=== PATIENT | female | born 1935 | race Caucasian/White ===

== ENCOUNTER 2020-12-15 01:32 | Day surgery (SDC) | payer MEDICARE, SELFPAY ==
[2020-12-11 13:03] VITALS: BMI 35.9
--- NOTE | 2020-12-14 16:23 | WPDANESEPPF ---
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 Patient Data Age: 85 Gender: F Height: 1.57 m Weight: 89.09 kg Allergies Allergy/AdvReac Type Severity Reaction Status Date / Time hyoscyamine Allergy Unknown Verified 12/11/20 13:00 minocycline Allergy Unknown Verified 12/11/20 13:00 promethazine Allergy Unknown Verified 12/11/20 13:00 Sulfa (Sulfonamide Allergy Unknown Verified 12/11/20 13:00 Antibiotics) Home Medications Medication Instructions Recorded Confirmed Type acetaminophen 500 mg PO QID PRN 12/11/20 12/11/20 History albuterol sulfate [Ventolin HFA] 1 - 2 inh INHALATION QID PRN 12/11/20 12/11/20 History amlodipine 10 mg DAILY 12/11/20 12/11/20 History aspirin [Aspirin Low Dose] 81 mg PO DAILY 12/11/20 12/11/20 History atorvastatin 40 mg DAILY 12/11/20 12/11/20 History carbidopa-levodopa 1 tablet DAILY 12/11/20 12/11/20 History cetirizine 10 mg PO DAILY 12/11/20 12/11/20 History cholecalciferol (vitamin D3) 50 mcg PO DAILY 12/11/20 12/11/20 History [Vitamin D3] cyanocobalamin (vitamin B-12) 1,000 mcg MONTHLY 12/11/20 12/11/20 History dexamethasone [Maxidex] 1 drp DAILY 12/11/20 12/11/20 History diclofenac sodium 75 mg PO BID 12/11/20 12/11/20 History esomeprazole magnesium 40 mg DAILY 12/11/20 12/11/20 History ferrous sulfate 325 mg PO DAILY 12/11/20 12/11/20 History fluoride (sodium) [PreviDent] 1 applic DENTAL USEASDIRECTD 12/11/20 12/11/20 History fluticasone furoate-vilanterol 1 inh INHALATION DAILY 12/11/20 12/11/20 History [Breo Ellipta] fluticasone propionate 50 mcg INTRANASAL DAILY 12/11/20 12/11/20 History gabapentin 300 mg TID 12/11/20 12/11/20 History hydralazine 25 mg PRN PRN 12/11/20 12/11/20 History hydrocodone-acetaminophen 1 tablet TID PRN 12/11/20 12/11/20 History lorazepam 0.25 mg HS 12/11/20 12/11/20 History magnesium oxide 400 mg PO DAILY 12/11/20 12/11/20 History metoprolol succinate 25 mg PO HS 12/11/20 12/11/20 History misoprostol 200 mcg SUBLINGUAL BID PRN 12/11/20 12/11/20 History neomycin-polymyxin B-dexameth See Rx Instructions .ROUTE .COMPLEX 12/11/20 12/11/20 History niacin 500 mg PO DAILY 12/11/20 12/11/20 History oxybutynin chloride 10 mg PO DAILY 12/11/20 12/11/20 History peg 400-propylene glycol [Systane 1 drp EACH EYE TID 12/11/20 12/11/20 History Ultra] phenazopyridine 100 mg PO TID PRN 12/11/20 12/11/20 History polyethylene glycol 3350 17 g PO USEASDIRECTD 12/11/20 12/11/20 History potassium chloride 10 meq DAILY 12/11/20 12/11/20 History sertraline 100 mg DAILY 12/11/20 12/11/20 History sodium chloride 1,000 mg PO DAILY 12/11/20 12/11/20 History valsartan-hydrochlorothiazide 1 tablet DAILY 12/11/20 12/11/20 History vitamin B complex 1 cap PO DAILY 12/11/20 12/11/20 History Patient hx anesthesia problems: none Family hx anesthesia problems: none PMFSH Past Medical History Medical History (Updated 12/14/20 @ 16:25 by Hamlet Murillo MD) Breast CA Chronic GERD COPD (chronic obstructive pulmonary disease) CVA (cerebral vascular accident) HTN (hypertension) Hypercholesterolemia Obesity HORTENCIA on CPAP Osteoarthritis Parkinson disease Peripheral neuropathy TIA (transient ischemic attack) Social History Social History Smoking status: Never smoker Second hand tobacco smoke exposure: No Alcohol use details: STATES ONCE OR TWICE A YEAR Substance use: never Substance use type: does not use Living arrangements: assisted living Additional living arrangements comments: [facility] Spiritual care concerns: No Anes - Eval Final PreProcedure Day of Procedure 12/14/20 16:23 Patient weight: obese Heart: regular rate and rhythm Lungs: clear to auscultation and normal air movement Airway: Mallampati scale cla
--- NOTE | 2020-12-15 11:53 | ECG_ITS ---
Measurements Intervals [place] Rate: 68 P: 40 NV: 208 QRS: -2 QRSD: 78 T: 31 QT: 421 QTc: 449 Interpretive Statements SINUS RHYTHM DELAYED PRECORDIAL R/S TRANSITION BORDERLINE ST ABNORMALITY- HIGH LATERAL LEADS BORDERLINE ECG Electronically Signed On 12-15-2020 12:18:28 LINE ERECTOR APPRENTICE by Behzad Gupta D.O.
[2020-12-15] MEDS: LACTATED RINGERS 1,000 ML 30 ML IV CONT (12:43)
[2020-12-15 13:03] VITALS: BP 128/57; PULSE 69; RESP 20; TEMP 36.2; O2SAT 96; BMI 29.7
--- NOTE | 2020-12-15 13:14 | WPDHPUPDATE1 ---
History and Physical Update Update Date/Time: 12/15/20 13:14 History and Physical has been reviewed, including an updated exam of the patient. There are NO changes in the patient's condition. Risks, benefits, and alternatives have been discussed and questions answered. Patient agrees to proceed with procedure.
--- NOTE | 2020-12-15 13:20 | PM.IMHP ---
H&P: HPI History of Present Illness Date/Time: 12/15/20 13:20 Chief Complaint: ostoemyelitis left 4th toe Narrative: Chad Ahuja is a 85 year old female [facility] Past Medical History Medical History (Updated 12/14/20 @ 16:25 by Hamlet Murillo MD) Breast CA Chronic GERD COPD (chronic obstructive pulmonary disease) CVA (cerebral vascular accident) HTN (hypertension) Hypercholesterolemia Obesity HORTENCIA on CPAP Osteoarthritis Parkinson disease Peripheral neuropathy TIA (transient ischemic attack) Social History Social History Smoking status: Never smoker Second hand tobacco smoke exposure: No Alcohol use details: STATES ONCE OR TWICE A YEAR Substance use: never Substance use type: does not use Living arrangements: assisted living Additional living arrangements comments: [facility] Spiritual care concerns: No Meds Home Medications and Allergies Home Medications Medication Instructions Recorded Confirmed Type acetaminophen 500 mg PO QID PRN 12/11/20 12/11/20 History albuterol sulfate [Ventolin HFA] 1 - 2 inh INHALATION QID PRN 12/11/20 12/11/20 History amlodipine 10 mg DAILY 12/11/20 12/15/20 History aspirin [Aspirin Low Dose] 81 mg PO DAILY 12/11/20 12/15/20 History atorvastatin 40 mg DAILY 12/11/20 12/11/20 History carbidopa-levodopa 1 tablet DAILY 12/11/20 12/15/20 History cetirizine 10 mg PO DAILY 12/11/20 12/11/20 History cholecalciferol (vitamin D3) 50 mcg PO DAILY 12/11/20 12/11/20 History [Vitamin D3] cyanocobalamin (vitamin B-12) 1,000 mcg MONTHLY 12/11/20 12/11/20 History dexamethasone [Maxidex] 1 drp DAILY 12/11/20 12/11/20 History diclofenac sodium 75 mg PO BID 12/11/20 12/11/20 History esomeprazole magnesium 40 mg DAILY 12/11/20 12/11/20 History ferrous sulfate 325 mg PO DAILY 12/11/20 12/11/20 History fluoride (sodium) [PreviDent] 1 applic DENTAL USEASDIRECTD 12/11/20 12/11/20 History fluticasone furoate-vilanterol 1 inh INHALATION DAILY 12/11/20 12/11/20 History [Breo Ellipta] fluticasone propionate 50 mcg INTRANASAL DAILY 12/11/20 12/11/20 History gabapentin 300 mg TID 12/11/20 12/11/20 History hydralazine 25 mg PRN PRN 12/11/20 12/11/20 History hydrocodone-acetaminophen 1 tablet TID PRN 12/11/20 12/15/20 History lorazepam 0.25 mg HS 12/11/20 12/11/20 History magnesium oxide 400 mg PO DAILY 12/11/20 12/11/20 History metoprolol succinate 25 mg PO HS 12/11/20 12/15/20 History misoprostol 200 mcg SUBLINGUAL BID PRN 12/11/20 12/11/20 History neomycin-polymyxin B-dexameth See Rx Instructions .ROUTE .COMPLEX 12/11/20 12/11/20 History niacin 500 mg PO DAILY 12/11/20 12/11/20 History oxybutynin chloride 10 mg PO DAILY 12/11/20 12/11/20 History peg 400-propylene glycol [Systane 1 drp EACH EYE TID 12/11/20 12/11/20 History Ultra] phenazopyridine 100 mg PO TID PRN 12/11/20 12/11/20 History polyethylene glycol 3350 17 g PO USEASDIRECTD 12/11/20 12/11/20 History potassium chloride 10 meq DAILY 12/11/20 12/11/20 History sertraline 100 mg DAILY 12/11/20 12/15/20 History sodium chloride 1,000 mg PO DAILY 12/11/20 12/11/20 History valsartan-hydrochlorothiazide 1 tablet DAILY 12/11/20 12/11/20 History vitamin B complex 1 cap PO DAILY 12/11/20 12/11/20 History Allergies Allergy/AdvReac Type Severity Reaction Status Date / Time hyoscyamine Allergy Unknown Verified 12/15/20 12:04 minocycline Allergy Unknown Verified 12/15/20 12:04 promethazine Allergy Unknown Verified 12/15/20 12:04 Sulfa (Sulfonamide Allergy Unknown Verified 12/15/20 12:04 Antibiotics) Vital Signs Vital Signs - 24 hr 12/15/20 13:03 Temperature 36.2 C L Pulse Rate 69 Respiratory Rate 20 Blood Pressure 128/57 L Pulse Oximetry 96 Exam Extrem: General: normal exam except as noted, no clubbing, cyanosis or edema, no pedal edema and no calf tenderness Right lower extremity: normal to inspection Left lower extremity: foot (ulceration tip of the left 4th toe) Details: vascular exam Details: dors
[2020-12-15] MEDS: BUPIVACAINE HCL 0.5% PF 30 ML VIAL INFILTRATE (13:28)
[2020-12-15] MEDS: ceFAZolin 2 GM/D5W 50 ML 2 GM/50 ML BAG IVPB (13:28)
--- NOTE | 2020-12-15 13:59 | PM.PROC ---
Procedure Note - Detailed Date of procedure: 12/15/20 Pre-op diagnosis: osteomylitis 4th digit left foot Post-op diagnosis: same Procedure performed: Partial amputation 4th toe left Description of procedure: Under monitored sedation patient was brought into the operating room and placed on the operating table in a supine position. Following MAC sedation local anesthesia was obtained around the 4th digit of the left foot using 2% Lidocaine plain with 0.5% Marcaine plain. The foot was then scrubbed, prepped, and draped in the usual aseptic manner. An Esmark bandage was used to exsanguinate the patient?s left foot and the ankle tourniquet was inflated. Attention was then directed to the 4th toe where a fish mouth type of incision was made at the DIPJ. It was noted that the distal and middle phalanx were soft and appeared infected. The toe was disarticulated at the PIPJ and removed entirely. The wound was flushed with copious amounts of sterile normal saline. Skin was repaired using 4-0 nylon. The wound was then covered with a dry, sterile compressive dressing consisting of steristrips, antibiotic ointment, Adaptic, 4 x4?s Lily and Coban. Ankle tourniquet was deflated; prompt capillary refill response was noted to all remaining digits of the left foot. Patient tolerated the procedure and anesthesia well, was transferred to the recovery room with vital signs stable and neurovascular status intact to all remaining digits of the left foot. Following a period of post-op monitoring the patient will be discharged home with written and oral post-op instructions. Anesthesia: MAC Surgeon: Gera Tello DPM Artist Mannequin Coloring: None Estimated blood loss (mL): 5 Drains: No Packing: No Pathology: yes Complications: No immediate complications Condition: stable Disposition: PACU
[2020-12-15 14:03] VITALS: BP 123/64; PULSE 68; RESP 16; O2SAT 94
[2020-12-15 14:30] VITALS: BP 149/79; PULSE 72; RESP 16; O2SAT 96
[2020-12-15 15:00] VITALS: BP 175/86; PULSE 75; RESP 16
[2020-12-15 15:25] VITALS: BP 158/75; PULSE 77; RESP 16
== END 2020-12-15 15:35 | disposition home or self-care (01) ==
PROVIDERS: Family Provider Internal Medicine; PCP Family Medicine; Visit Provider Podiatrist Foot & Ankle Surgery
PROC: (CPT 28825; principal; 2020-12-15 13:30)
DX: M86.8X7 Other osteomyelitis, ankle and foot (principal); Z79.82 Long term (current) use of aspirin; Z79.51 Long term (current) use of inhaled steroids; G47.33 Obstructive sleep apnea (adult) (pediatric); J44.9 Chronic obstructive pulmonary disease, unspecified; K21.9 Gastro-esophageal reflux disease without esophagitis; E78.00 Pure hypercholesterolemia, unspecified; M19.90 Unspecified osteoarthritis, unspecified site; G20 Parkinson's disease; Z86.73 Personal history of transient ischemic attack (TIA), and cerebral infarction without residual deficits; I10 Essential (primary) hypertension; E66.9 Obesity, unspecified; Z68.29 Body mass index [BMI] 29.0-29.9, adult; Z85.3 Personal history of malignant neoplasm of breast; G62.9 Polyneuropathy, unspecified
CPT/HCPCS: 28825; 87070; 87075; 87205; 88305; 88311; 93005; A9270; J0690; J2704; J3010; J7120

== ENCOUNTER 2021-03-08 01:31 | Day surgery (SDC) | payer MEDICARE, SELFPAY ==
[2021-03-05 15:45] VITALS: BMI 34.2
--- NOTE | 2021-03-07 10:06 | WPDANESEPPF ---
Anes - Initial Pre Proc Eval Procedure: Operation Date: 03/08/21 13:00 Proposed Procedures p Amputation Left Third and Fourth Toes - Gera Tello DPM Date/Time: 03/07/21 10:06 Surgeon: Gera Tello DPM Pre Op Diagnosis: osteomyelitis Patient Data Age: 85 Gender: F Height: 1.57 m Weight: 84.95 kg Allergies Allergy/AdvReac Type Severity Reaction Status Date / Time hyoscyamine Allergy Unknown Hives Verified 03/08/21 11:05 minocycline Allergy Unknown Hives Verified 03/08/21 11:05 promethazine Allergy Unknown Hives Verified 03/08/21 11:05 Sulfa (Sulfonamide Allergy Unknown Hives Verified 03/08/21 11:05 Antibiotics) Home Medications Medication Instructions Recorded Confirmed Type acetaminophen 500 mg PO QID PRN 12/11/20 03/05/21 History albuterol sulfate [Ventolin HFA] 1 - 2 inh INHALATION QID PRN 12/11/20 03/05/21 History amlodipine 10 mg DAILY 12/11/20 03/08/21 History aspirin [Aspirin Low Dose] 81 mg PO DAILY 12/11/20 03/05/21 History atorvastatin 40 mg DAILY 12/11/20 03/05/21 History carbidopa-levodopa 1 tablet DAILY 12/11/20 03/08/21 History cetirizine 10 mg PO DAILY 12/11/20 03/05/21 History cholecalciferol (vitamin D3) 50 mcg PO DAILY 12/11/20 03/05/21 History [Vitamin D3] cyanocobalamin (vitamin B-12) 1,000 mcg MONTHLY 12/11/20 03/05/21 History dexamethasone [Maxidex] 1 drp DAILY 12/11/20 03/05/21 History diclofenac sodium 75 mg PO BID 12/11/20 03/05/21 History esomeprazole magnesium 40 mg DAILY 12/11/20 03/05/21 History ferrous sulfate 325 mg PO DAILY 12/11/20 03/05/21 History fluoride (sodium) [PreviDent] 1 applic DENTAL USEASDIRECTD 12/11/20 03/05/21 History fluticasone furoate-vilanterol 1 inh INHALATION DAILY 12/11/20 03/08/21 History [Breo Ellipta] fluticasone propionate 50 mcg INTRANASAL DAILY 12/11/20 03/05/21 History gabapentin 600 mg PO TID 12/11/20 03/08/21 History hydralazine 25 mg PRN PRN 12/11/20 03/05/21 History hydrocodone-acetaminophen 1 tablet TID PRN 12/11/20 03/05/21 History lorazepam 0.25 mg HS 12/11/20 03/05/21 History magnesium oxide 400 mg PO DAILY 12/11/20 03/05/21 History metoprolol succinate 25 mg PO HS 12/11/20 03/05/21 History misoprostol 200 mcg SUBLINGUAL BID PRN 12/11/20 03/05/21 History neomycin-polymyxin B-dexameth See Rx Instructions .ROUTE .COMPLEX 12/11/20 03/05/21 History niacin 500 mg PO DAILY 12/11/20 03/05/21 History oxybutynin chloride 10 mg PO DAILY 12/11/20 03/05/21 History peg 400-propylene glycol [Systane 1 drp EACH EYE TID 12/11/20 03/05/21 History Ultra] phenazopyridine 100 mg PO TID PRN 12/11/20 03/05/21 History polyethylene glycol 3350 17 g PO USEASDIRECTD 12/11/20 03/05/21 History potassium chloride 10 meq DAILY 12/11/20 03/05/21 History sertraline 100 mg DAILY 12/11/20 03/08/21 History sodium chloride 1,000 mg PO DAILY 12/11/20 03/05/21 History valsartan-hydrochlorothiazide 1 tablet DAILY 12/11/20 03/05/21 History vitamin B complex 1 cap PO DAILY 12/11/20 03/05/21 History Patient hx anesthesia problems: none Family hx anesthesia problems: none PMFSH Past Medical History Medical History (Updated 12/14/20 @ 16:25 by Hamlet Murillo MD) Breast CA Chronic GERD COPD (chronic obstructive pulmonary disease) CVA (cerebral vascular accident) HTN (hypertension) Hypercholesterolemia Obesity HORTENCIA on CPAP Osteoarthritis Parkinson disease Peripheral neuropathy TIA (transient ischemic attack) Social History Social History Smoking status: Never smoker Second hand tobacco smoke exposure: No Substance use: never Substance use type: does not use Living arrangements: [facility] Additional living arrangements comments: [facility] Spiritual care concerns: No Anes - Eval Final PreProcedure Day of Procedure 03/07/21 10:06 Patient weight: obese Heart: regular rate and rhythm Lungs: clear to auscultation and normal air movement Airway: Mallampati scale class II Neurological: alert and oriented Last oral intak
[2021-03-08 11:04] VITALS: BP 142/64; PULSE 70; RESP 20; TEMP 36.6; O2SAT 92
[2021-03-08] MEDS: LACTATED RINGERS 1,000 ML 30 ML IV CONT (11:45)
--- NOTE | 2021-03-08 12:28 | WPDHPUPDATE1 ---
History and Physical Update Update Date/Time: 03/08/21 12:28 History and Physical has been reviewed, including an updated exam of the patient. There are NO changes in the patient's condition. Risks, benefits, and alternatives have been discussed and questions answered. Patient agrees to proceed with procedure.
[2021-03-08] MEDS: ceFAZolin 2 GM/D5W 50 ML 2 GM/50 ML BAG IVPB (13:12)
[2021-03-08] MEDS: BUPIVACAINE HCL 0.5% PF 30 ML VIAL 20 ML INFILTRATE (13:40)
[2021-03-08 13:57] VITALS: BP 145/65; PULSE 74; RESP 16; O2SAT 100
--- NOTE | 2021-03-08 14:00 | PM.PROC ---
Procedure Note - Detailed Date of procedure: 03/08/21 Pre-op diagnosis: osteomyelitis Post-op diagnosis: same Procedure performed: Amputation 3rd and 4th toe left Description of procedure: Under monitored sedation patient was brought into the operating room and placed on the operating table in a supine position. Following MAC sedation local anesthesia was obtained around the 3rd and 4th digit of the left foot using 2% Lidocaine plain with 0.5% Marcaine plain. The foot was then scrubbed, prepped, and draped in the usual aseptic manner. An Esmark bandage was used to exsanguinate the patient?s left foot and the ankle tourniquet was inflated. Attention was then directed to the 4th toe where a fish mouth type of incision was made at the MPJ. It was noted that the bone was soft and appeared infected. The toe was disarticulated at the MPJ and removed entirely. The wound was flushed with copious amounts of sterile normal saline. Skin was repaired using 4-0 nylon. The same procedure was then repeated on the 3rd toe. The wound was then covered with a dry, sterile compressive dressing consisting of steristrips, antibiotic ointment, Adaptic, 4 x4?s Lily and Coban. Ankle tourniquet was deflated; prompt capillary refill response was noted to all remaining digits of the left foot. Patient tolerated the procedure and anesthesia well, was transferred to the recovery room with vital signs stable and neurovascular status intact to all remaining digits of the left foot. Following a period of post-op monitoring the patient will be discharged home with written and oral post-op instructions. Implants: none Anesthesia: STIVEN Surgeon: Gera Tello DPM Manager Private: None Estimated blood loss (mL): 5 Drains: No Packing: No Pathology: none sent Complications: No immediate complications Condition: stable Disposition: PACU
[2021-03-08 14:25] VITALS: BP 147/62; PULSE 72; RESP 18; O2SAT 94
[2021-03-08 14:55] VITALS: BP 153/70; PULSE 78; RESP 18; O2SAT 92
[2021-03-08 15:25] VITALS: BP 131/51; PULSE 80; RESP 18
== END 2021-03-08 15:44 | disposition home or self-care (01) ==
PROVIDERS: PCP Family Medicine; Visit Provider Podiatrist Foot & Ankle Surgery
PROC: (CPT 28820; principal; 2021-03-08 13:00)
DX: M86.9 Osteomyelitis, unspecified (principal); I10 Essential (primary) hypertension; E78.00 Pure hypercholesterolemia, unspecified; G47.33 Obstructive sleep apnea (adult) (pediatric); E66.9 Obesity, unspecified; Z68.34 Body mass index [BMI] 34.0-34.9, adult; G20 Parkinson's disease; G62.9 Polyneuropathy, unspecified; J44.9 Chronic obstructive pulmonary disease, unspecified; Z86.73 Personal history of transient ischemic attack (TIA), and cerebral infarction without residual deficits
CPT/HCPCS: 28820 ×2; 88305; 88311; A9270; J0690; J2405; J2704; J3010; J7120